=== PATIENT | female | born 1930 | race Caucasian/White ===

== ENCOUNTER 2017-09-12 07:13 | Emergency (ER) | payer MEDICARE, BC ==
[2017-09-12 07:52] VITALS: BP 149/78
--- NOTE | 2017-09-12 08:07 | UC ---
Skin Complaint HPI - HPI Summary HPI Summary: Rash for about two days. it was very itchy. It is on the upper right breast. She wonders if it is shingles and has started left over famcyclovir. - History of Current Complaint Chief Complaint: UCSkin Time Seen by Provider: 09/12/17 07:41 Stated Complaint: SKIN COMPLAINT Hx Obtained From: Patient Hx Last Menstrual Period: Not applicable. Onset/Duration: Gradual Onset, Lasting Days Skin Exposure Onset/Duration: Days Ago Timing: Constant Onset Severity: Moderate Current Severity: Mild Pain Intensity: 0 Location: Discrete Character: Pruritus Aggravating Factor(s): Touch Alleviating Factor(s): Nothing Associated Signs & Symptoms: Positive: Rash. Negative: Nausea, Vomiting, Numbness, Fever, Chills, Cough, Tenderness - Allergy/Home Medications Allergies/Adverse Reactions: Allergies Allergy/AdvReac Type Severity Reaction Status Date / Time nebivolol [From Bystolic] Allergy SORE Verified 09/12/17 07:35 THROAT,COUGH, EAR PAIN, GI UPSET.HOARSNESS Home Medications: Home Medications Atorvastatin* [Lipitor*] 40 mg PO DAILY 09/12/17 [History Confirmed 09/12/17] Clopidogrel TAB* [Plavix TAB*] 75 mg PO DAILY 09/12/17 [History Confirmed ] Lansoprazole [Prevacid] 30 mg PO 09/12/17 [History] amLODIPine TAB* [Norvasc 5 mg TAB*] 5 mg PO DAILY 09/12/17 [History Confirmed ] Review of Systems Skin: Rash All Other Systems Reviewed And Are Negative: Yes PMH/Surg Hx/FS Hx/Imm Hx Previously Healthy: No Other History Of: Negative For: HIV, Hepatitis B, Hepatitis C, Anticoagulant Therapy - Surgical History Surgical History: Yes Surgery Procedure, Year, and Place: gallbladder. tonsillectomy. facial surgery - Family History Known Family History: Positive: Cardiac Disease, Hypertension - Social History Lives: With Family Alcohol Use: None Substance Use Type: None Smoking Status (MU): Never Smoked Tobacco Physical Exam Triage Information Reviewed: Yes Appearance: Well-Appearing, No Pain Distress, Well-Nourished Vital Signs: Initial Vital Signs Temp 98.3 F 09/12/17 07:41 Pulse 90 09/12/17 07:41 Resp 18 06/20/18 07:41 BP 149/78 09/12/17 07:41 Pulse Ox 97 09/12/17 07:41 Vital Signs Reviewed: Yes Eyes: Positive: Conjunctiva Clear ENT: Positive: Normal ENT inspection Neck: Positive: Supple, Nontender, No Lymphadenopathy Respiratory: Negative: Respiratory distress, Accessory muscle use Cardiovascular: Positive: Brisk Capillary Refill Abdomen Description: Positive: Soft. Negative: Distended, Guarding Musculoskeletal: Positive: No Edema Neurological: Positive: Alert, Muscle Tone Normal. Negative: Fatigued Psychological: Positive: Age Appropriate Behavior Skin Exam: Other - small patch of excoriated skin right of midline mid breast. No streaking or induration. NO vesicles. Course/Dx - Diagnoses Provider Diagnoses: rash Discharge - Sign-Out/Discharge Documenting (check all that apply): Discharge/Admit/Transfer - Discharge Plan Condition: Good Disposition: HOME Prescriptions: Triamcinolone 0.5% OINT * 1 applic TOPICAL BID #1 tube Patient Education Materials: Acute Rash (ED) Referrals: Phyllis Llanes MD [Primary Care Provider] - - Billing Disposition and Condition Condition: GOOD Disposition: Home
== END 2017-09-12 08:13 | disposition home or self-care (01) ==
LOC: UCCORT 07:13
DX: R21 Rash and other nonspecific skin eruption (principal); Z88.8 Allergy status to other drugs, medicaments and biological substances
CPT/HCPCS: 99212; G0463